=== PATIENT | male | born 1990 | race Caucasian/White ===

== ENCOUNTER 2017-10-31 15:33 | Emergency (ER) | payer OTHER, MEDICAID ==
[2017-10-31 15:53] VITALS: BP 139/79; PULSE 87; RESP 16; TEMP 97.8; O2SAT 99
[2017-10-31] MEDS ORDERED: Absorbable Gelatin Sponge Size 12-7 ONE (16:03)
--- NOTE | 2017-10-31 16:22 | ED PDOC ---
Upper Extremity Pain/Injury Time Seen by Provider: 10/31/17 15:56 Chief Complaint (Nursing): Finger,Hand,&Wrist Chief Complaint (Provider): Finger,Hand,&Wrist History Per: Patient History/Exam Limitations: no limitations Current Symptoms Are (Timing): Still Present Additional Complaint(s): 27 y/o male presents to the ED for evaluation of avulsion to right thumb. 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 He was treated at [facility] [place] and dressing was applied, but the wound started bleeding again. Tetanus vaccine was given. Denies any further medical complaints. Past Medical History Reviewed: Historical Data, Nursing Documentation, Vital Signs Vital Signs: Last Vital Signs Temp 97.8 F 10/31/17 15:50 Pulse 87 10/31/17 15:50 Resp 16 10/31/17 15:50 BP 139/79 10/31/17 15:50 Pulse Ox 99 10/31/17 15:50 - Medical History PMH: No Chronic Diseases - Surgical History Surgical History: No Surg Hx - Family History Family History: States: Unknown Family Hx - Living Arrangements Living Arrangements: With Family - Social History Current smoker - smoking cessation education provided: No - Allergies Allergies/Adverse Reactions: Allergies Allergy/AdvReac Type Severity Reaction Status Date / Time No Known Allergies Allergy Verified 10/31/17 15:49 Review of Systems ROS Statement: Except As Marked, All Systems Reviewed And Found Negative (As per HPI, otherwise negative) Constitutional: Negative for: Fever, Chills Skin: Positive for: Other (avulsion on right thumb) Physical Exam - Reviewed Nursing Documentation Reviewed: Yes Vital Signs Reviewed: Yes - Physical Exam Appears: Positive for: Non-toxic, No Acute Distress Head Exam: Positive for: ATRAUMATIC, NORMAL INSPECTION, NORMOCEPHALIC Skin: Positive for: Normal Color, Warm, Dry Eye Exam: Positive for: Normal appearance ENT: Positive for: Normal ENT Inspection Neck: Positive for: Normal Respiratory: Negative for: Accessory Muscle Use, Respiratory Distress Extremity: Positive for: Other (avulsion on right lateral thumb nail, mild bleeding ) Neurologic/Psych: Positive for: Alert, Oriented (x3) - ECG O2 Sat by Pulse Oximetry: 99 (RA) Pulse Ox Interpretation: Normal Medical Decision Making Medical Decision Making: Time: 16:15 Plan: After dressing was removed, xeroform was noted on patients right thumb. After removing xeroform, gel foam and pressure dressing was applied. Patient is under evaluation to ensure that bleeding doesnt continue further. Scribe Attestation: Documented by Kristen Luis acting as a scribe for GEORGIANA Ann. Scribe Attestation: All medical record entries made by the Scribe were at my direction and personally dictated by me. I have reviewed the chart and agree that the record accurately reflects my personal performance of the history, physical exam, medical decision making, and the department course for this patient. I have also personally directed, reviewed, and agree with the discharge instructions and disposition. Disposition - Clinical Impression Clinical Impression: Skin avulsion - Disposition Disposition: Routine/Home Disposition Time: 16:50 Condition: GOOD Instructions: Skin Avulsion (ED) Forms: [employer] (Kinyarwanda)
[2017-10-31] MEDS ORDERED: Acetaminophen-Codeine 300/30 mg Tab PO STA (16:54)
[2017-10-31] MEDS ORDERED: Acetaminophen-Codeine 300/30 mg Tab ONE (16:57)
== END 2017-10-31 17:39 | disposition home or self-care (01) ==
LOC: H.ER 15:33
DX: S61.011A Laceration without foreign body of right thumb without damage to nail, initial encounter (principal); W26.0XXA Contact with knife, initial encounter; Y99.0 Civilian activity done for income or pay

== ENCOUNTER 2017-11-03 09:25 | Emergency (ER) | payer MEDICAID, OTHER ==
[2017-11-03] MEDS ORDERED: Absorbable Gelatin Sponge Size 12-7 ONE (10:19)
--- NOTE | 2017-11-03 10:37 | ED PDOC ---
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 C/o pain to site, no numbness, no fever no discharge. Td booster given at [facility] [place]. Past Medical History Reviewed: Historical Data, Nursing Documentation, Vital Signs - Medical History PMH: No Chronic Diseases - Family History Family History: States: Unknown Family Hx - Immunization History Hx Tetanus Toxoid Vaccination: Yes (10/31/17 at [facility] [place]) - Home Medications Home Medications: Ambulatory Orders Medication Instructions Recorded Clindamycin [Cleocin] 300 mg PO TID #15 cap 11/03/17 - Allergies Allergies/Adverse Reactions: Allergies Allergy/AdvReac Type Severity Reaction Status Date / Time No Known Allergies Allergy Verified 10/31/17 15:49 Review of Systems ROS Statement: Except As Marked, All Systems Reviewed And Found Negative Constitutional: Negative for: Fever, Chills Musculoskeletal: Positive for: Other (R thumb pain) Neurological: Negative for: Weakness, Numbness Physical Exam - Reviewed Nursing Documentation Reviewed: Yes Vital Signs Reviewed: Yes - Physical Exam Appears: Positive for: Well, Non-toxic, No Acute Distress Head Exam: Positive for: ATRAUMATIC, NORMAL INSPECTION, NORMOCEPHALIC Skin: Positive for: Normal Color, Warm, DRY Eye Exam: Positive for: Normal appearance ENT: Positive for: Normal ENT Inspection Respiratory: Negative for: Respiratory Distress Extremity: Positive for: Other (R thumb 1.5cm avulsion of mid nail with dried blood, mild tenderness, no discharge/edema/FROM thumb, no tracking erythema) Neurologic/Psych: Positive for: Alert, Oriented Medical Decision Making Medical Decision Making: area redressed after irrigation and gel foam reapplied Given open wound now 3 days will initiate clinda 300 PO TID Referral to hand surgery if not improved sunday. Disposition - Clinical Impression Clinical Impression: Avulsion of nail - Patient ED Disposition Is Patient to be Admitted: No Counseled Patient/Family Regarding: Studies Performed, Diagnosis, Need For Followup - Disposition Referrals: Arabella Agudelo MD [Staff Provider] - Disposition: Routine/Home Disposition Time: 10:05 Condition: STABLE Additional Instructions: See hand specialist in 3-4 days if symptoms persist. Keep area clean and dry. Keep dressing intact for 72 hours. Prescriptions: Clindamycin [Cleocin] 300 mg PO TID #15 cap Instructions: Nail Avulsion (ED), Laceration Without Closure (ED) Forms: [employer] (Sami)
== END 2017-11-03 10:47 | disposition home or self-care (01) ==
LOC: H.ER 09:25
DX: Z48.00 Encounter for change or removal of nonsurgical wound dressing (principal)

== ENCOUNTER 2017-11-04 08:23 | Emergency (ER) | payer MEDICAID ==
[2017-11-04 08:55] VITALS: BP 122/80; PULSE 66; RESP 18; TEMP 99; O2SAT 96
--- NOTE | 2017-11-04 10:04 | ED PDOC ---
HPI: Wound Care - HPI Time Seen by Provider: 11/04/17 08:59 Chief Complaint (Nursing): Wound Check Chief Complaint (Provider): Wound Check History Per: Patient History Of Present Illness: Johnathon Smalls Jr. is a 27 year old male presenting to the ED for a wound re- evaluation to his right thumb. The patient wet his wound yesterday when cooking therefore presents to the ED for redressing. The patient reports he was seen yesterday for the same complaints. He also reports that he did not fill his antibiotics yet. 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 He denies any new pain or bleeding to the wound. PMD: None Provided Exam Limitations: no limitations Onset/Duration Of Symptoms: Hrs (prior to arrival ) Current Symptoms Are (Timing): Still Present Past Medical History Reviewed: Historical Data, Nursing Documentation, Vital Signs Vital Signs: Last Vital Signs Temp 99 F 11/04/17 08:49 Pulse 66 11/04/17 08:49 Resp 18 11/04/17 08:49 BP 122/80 11/04/17 08:49 Pulse Ox 96 11/04/17 08:49 - Medical History PMH: No Chronic Diseases - Family History Family History: States: Unknown Family Hx - Social History Current smoker - smoking cessation education provided: Yes Alcohol: Social Drugs: Cannabis - Immunization History Hx Tetanus Toxoid Vaccination: Yes (10/31/17 at [facility] [place]) - Home Medications Home Medications: Ambulatory Orders Medication Instructions Recorded Clindamycin [Cleocin] 300 mg PO TID #15 cap 11/03/17 - Allergies Allergies/Adverse Reactions: Allergies Allergy/AdvReac Type Severity Reaction Status Date / Time No Known Allergies Allergy Verified 11/04/17 08:49 Review of Systems ROS Statement: Except As Marked, All Systems Reviewed And Found Negative Constitutional: Negative for: Fever Musculoskeletal: Negative for: Hand Pain (no right thumb pain) Physical Exam - Reviewed Nursing Documentation Reviewed: Yes Vital Signs Reviewed: Yes - Physical Exam Appears: Positive for: Non-toxic, No Acute Distress Head Exam: Positive for: ATRAUMATIC, NORMOCEPHALIC Extremity: Positive for: Normal ROM, Other (right thumb - avulsion into right nail bed; no bleeding or discharge present) Neurologic/Psych: Positive for: Alert, Oriented (x3). Negative for: Motor/ Sensory Deficits - ECG O2 Sat by Pulse Oximetry: 96 (RA) Pulse Ox Interpretation: Normal Medical Decision Making Medical Decision Making: Time: 08:59 Impression: Wound re-evaluation to right thumb Plan: * Patient will be discharged with wound supplies and discussed with patient to follow up if he experiences discharge. Also recommended to fill up antibiotic prescription. Patient agreed to treatment plan. Scribe Attestation: Documented by Morena Seth, acting as a scribe for Alessandro Myles DO. Provider Scribe Attestation: All medical record entries made by the Scribe were at my direction and personally dictated by me. I have reviewed the chart and agree that the record accurately reflects my personal performance of the history, physical exam, medical decision making, and the department course for this patient. I have also personally directed, reviewed, and agree with the discharge instructions and disposition. Disposition - Clinical Impression Clinical Impression: Encounter for wound re-check - Patient ED Disposition Is Patient to be Admitted: No Counseled Patient/Family Regarding: Studies Performed, Diagnosis, Need For Followup - Disposition Referrals: Arabella Agudelo MD [Staff Provider] - Disposition: Routine/Home Disposition Time: 09:25 Condition: STABLE Instructions: Acute Wound Care (ED) Forms: [employer] (Tamazight)
== END 2017-11-04 10:14 | disposition home or self-care (01) ==
LOC: H.ER 08:23
DX: Z48.00 Encounter for change or removal of nonsurgical wound dressing (principal)